=== PATIENT | female | born 1985 | race Caucasian/White ===

== ENCOUNTER 2016-08-10 22:05 | Emergency (ER) | payer BC ==
--- NOTE | 2016-08-10 23:25 | ED ---
Lower Extremity - HPI Summary HPI Summary: 30 female presents with complaints of left ankle pain after she rolled it while walking on uneven gravel just [employer]. Patient states she has sprained the same ankle multiple times in the past, just about once a year. Patient admits to loss of ROM and some tingling. Denies any other injuries or hitting her head. Has not taken any medication prior to arrival. Able to bear weight however it does cause her pain. She has been using crutches. Admits to hearing cracking during incident. Describes pain as an ache/throb. Also admits to nausea because of the pain. - History of Current Complaint Chief Complaint: EDExtremityLower Stated Complaint: LT ANKLE INJURY Time Seen by Provider: 08/10/16 22:40 Hx Obtained From: Patient Hx Last Menstrual Period: 10/17 Mechanism Of Injury: Twisted Onset of Pain: Immediate, Post Accident Onset/Duration: Hours Severity Initially: Moderate Severity Currently: Moderate Pain Intensity: 7 Pain Scale Used: 0-10 Numeric Timing: Constant Location: Is Discrete @ - left ankle/foot Character Of Pain: Sharp, Aching, Stiffness Associated Signs And Symptoms: Positive: Swelling Aggravating Factor(s): Standing, Ambulation, Weight Bearing Alleviating Factor(s): Rest Able to Bear Weight: Yes - however causes pain and refrains - Allergies/Home Medications Allergies/Adverse Reactions: Allergies Allergy/AdvReac Type Severity Reaction Status Date / Time No Known Allergies Allergy Verified 08/10/16 22:07 PMH/Surg Hx/FS Hx/Imm Hx Endocrine/Hematology History: Denies: Hx Anticoagulant Therapy Cardiovascular History: Denies: Hx Pacemaker/ICD Respiratory History: Reports: Hx Asthma - well controlled, Hx Seasonal Allergies Sensory History: Denies: Hx Hearing Aid Neurological History: Denies: Other Neuro Impairments/Disorders Psychiatric History: Denies: Hx Panic Disorder - Surgical History Surgery Procedure, Year, and Place: LT KNEE ACL REPAIRED, [facility] 09, LEFT MIDDLE FINGER MASS REMOVED - Immunization History Immunizations Up to Date: Yes Infectious Disease History: No Infectious Disease History: Denies: Traveled Outside the [place] in Last 30 Days - Family History Known Family History: Positive: None - Social History Alcohol Use: None Substance Use Type: Reports: None Smoking Status (MU): Never Smoked Tobacco Review of Systems Constitutional: Negative Cardiovascular: Negative Respiratory: Negative Positive: Nausea Positive: Arthralgia, Myalgia, Decreased ROM, Edema - left ankle Skin: Negative Positive: Paresthesia - left foot/toes intermittent All Other Systems Reviewed And Are Negative: Yes Physical Exam Triage Information Reviewed: Yes Vital Signs On Initial Exam: Initial Vitals Temp Pulse Resp BP Pulse Ox 98.1 F 77 18 144/91 99 08/10/16 22:07 08/10/16 22:07 08/10/16 22:07 08/10/16 22:07 08/10/16 22:07 Vital Signs Reviewed: Yes Appearance: Positive: Well-Appearing, Well-Nourished, Pain Distress - moderate Skin: Positive: Warm, Skin Color Reflects Adequate Perfusion, Dry, Other - minimal edema noted around left lateral malleolous. no laceration, no obvious deformity, crepitus or step off noted.. Negative: Cold, Numb, Cyanosis @, Erythema @ Head/Face: Positive: Normal Head/Face Inspection Eyes: Positive: Normal ENT: Positive: Normal ENT inspection, Hearing grossly normal Neck: Positive: Supple, Nontender Respiratory/Lung Sounds: Positive: Clear to Auscultation, Breath Sounds Present. Negative: Rales, Rhonchi, Wheezes Cardiovascular: Positive: Normal, RRR, Pulses are Symmetrical in both Upper and Lower Extremities - 2+ pedal b/l. Negative: Murmur, Rub Abdomen Description: Positive: Nontender, Soft Bowel Sounds: Positive: Present Musculoskeletal: Positive: Limited @ - left ankle due to pain with all movements , Pain @ - posterior ankle and lateral/medial ankle with dorsal foot pain radiation, Edema Left - minimal when compared to right, around area of lateral malleolus. Negative: Interruption @ Neurological: Positive: Normal, Sensory/Motor Intact - sensation intact, two point discrimination normal, Alert, Oriented to Person Place, Time, CN Intact II -III, Reflexes Intact, NV Bundle Intact Distally, Unable to Assess Gait - due to pain and non weight bearing Psychiatric: Positive: Normal, Affect/Mood Appropriate AVPU Assessment: Alert Diagnostics - Vital Signs Vital Signs Temp Pulse Resp BP Pulse Ox 08/10/16 22:07 98.1 F 77 18 144/91 99 - Laboratory Lab Statement: Any lab studies that have been ordered have been reviewed, and results considered in the medical decision making process. - Radiology left ankle Xray Interpretation: No Acute Changes Radiology Interpretation Completed By: ED Physician - Dr Trinh and myself Lower Extremity Course/Dx - Course Course Of Treatment: x-ray obtained and negative for fracture. given toradol and zofran for pain and nausea. patient requested CAM boot for easier mobility. given boot, already owned crutches that fit properly. RICE. NSAIDs and follow up. Non weight bearing. Aware of worsening signs and symptoms to watch out for. - Diagnoses Differential Diagnosis/HQI/PQRI: Positive: Contusion, Dislocation, Fracture ( Closed), Sprain, Strain Provider Diagnoses: Left ankle sprain Discharge - Discharge Plan Condition: Stable Disposition: HOME Patient Education Materials: Ankle Sprain (ED) Referrals: Gerhard Pineda MD [Primary Care Provider] - Errol Collins MD [Medical Doctor] - Additional Instructions: Take Aleve or Advil as needed every 6-8 hours with food for pain and inflammation. Apply ice multiple times daily. Rest and elevate. Try to not bear your weight for the next 3 days, use brace or cam boot, crutches. Follow up with PCP or ortho to ensure proper healing. If symptoms worsen or new symptoms develop please seek medical attention promptly.
[2016-08-10] MEDS ORDERED: Ketorolac INJ* 60 MG/2 ML VIAL IM ONE (23:39)
[2016-08-10] MEDS ORDERED: Ondansetron ODT TAB* 4 MG SL PRN (23:39)
[2016-08-11] MEDS ORDERED: Ondansetron ODT TAB* 4 MG PO ONE (00:03)
[2016-08-11 00:09] VITALS: BP 126/73
--- NOTE | 2016-08-11 07:28 | RAD ---
INDICATION: Left ankle injury. TECHNIQUE: 3 views of the left ankle were obtained. FINDINGS: Soft tissue swelling is noted along the anterolateral aspect of the ankle. No fracture is seen. Joint spaces appear maintained. IMPRESSION: SOFT TISSUE SWELLING, NO FRACTURE IS SEEN.
== END 2016-08-11 00:10 | disposition home or self-care (01) ==
LOC: ED 22:05
DX: S93.402A Sprain of unspecified ligament of left ankle, initial encounter (principal); M25.50 Pain in unspecified joint; R20.9 Unspecified disturbances of skin sensation; X50.9XXA Other and unspecified overexertion or strenuous movements or postures, initial encounter; Y93.9 Activity, unspecified; Y92.9 Unspecified place or not applicable; Y99.9 Unspecified external cause status
CPT/HCPCS: 96372; 99282; A9270-GY; J1885

== ENCOUNTER 2017-01-03 10:51 | Emergency (ER) | payer BC ==
[2017-01-03 11:11] VITALS: BP 116/69
--- NOTE | 2017-01-03 11:55 | UC ---
Back Pain HPI - HPI Summary HPI Summary: Pt presents with LBP. She tells me that about 5 years ago she hurt her back at work and underwent a workup including an MRI, which revealed she had herniated disks and bulging disks in her lumbar spine. At that time, she was treated with physical therapy, muscle relaxers, and rest. Today she tells me that she woke up yesterday with lower back pain with pain, numbness, and tingling radiating down both LEs. She denies specific injury. She has never had numbness or tingling in her legs before. She has been taking ibuprofen with little relief. She also complains that her hands felt "crampy" last night, but that went away within minutes. She denies fever, chills, recent illness/injury, abdominal pain, N/V/D/C, loss of bowel or bladder control, dysuria, hematuria, or urinary freq. - History of Current Complaint Chief Complaint: UCBackPain Stated Complaint: BACK PAIN Time Seen by Provider: 01/03/17 11:55 Hx Obtained From: Patient Hx Last Menstrual Period: 11/27/2016 ?: No Onset/Duration: Sudden Onset Timing: Constant Severity Initially: Severe Severity Currently: Severe Pain Intensity: 9 Pain Scale Used: 0-10 Numeric Character: Sharp, Aching Aggravating Factor(s): Movement, Lifting, Bending, Walking Alleviating Factor(s): Rest, Heat Associated Signs And Symptoms: Positive: Weakness, Numbness, Tingling - Allergies/Home Medications Allergies/Adverse Reactions: Allergies Allergy/AdvReac Type Severity Reaction Status Date / Time SEASONAL Allergy Runny Nose Uncoded 10/20/16 14:10 Home Medications: Home Medications Fluticasone DISKUS 100 MCG(NF) [Flovent Diskus 100 MCG(NF)] 1 puff INH BID 01/03 [History Confirmed 01/03/17] PMH/Surg Hx/FS Hx/Imm Hx Previously Healthy: Yes Other History Of: Negative For: Anticoagulant Therapy - Surgical History Surgical History: Yes Surgery Procedure, Year, and Place: LT KNEE ACL REPAIRED; [facility] ; LEFT MIDDLE FINGER MASS REMOVED; - Family History Known Family History: Positive: None - Social History Occupation: Employed Full-time Lives: Alone Alcohol Use: Rare Substance Use Type: None Smoking Status (MU): Never Smoked Tobacco - Immunization History Most Recent Influenza Vaccination: 01/24 Most Recent Tetanus Shot: received in Most Recent Pneumonia Vaccination: never had Review of Systems Constitutional: Negative Skin: Negative Respiratory: Negative Cardiovascular: Negative Gastrointestinal: Negative Genitourinary: Negative Musculoskeletal: Decreased ROM - Spine, Other: - Low back pain Neurological: Numbness - LEs All Other Systems Reviewed And Are Negative: Yes Physical Exam Triage Information Reviewed: Yes Appearance: Pain Distress, Obese Vital Signs: Initial Vital Signs Temp 98.3 F 01/03/17 11:05 Pulse 72 01/03/17 11:05 Resp 18 01/03/17 11:05 BP 116/69 01/03/17 11:05 Pulse Ox 99 01/03/17 11:05 Vital Signs Reviewed: Yes Neck: Positive: Supple, Nontender, No Lymphadenopathy, Other: - FROM. NTTP. Negative spurlings. Respiratory: Positive: Chest non-tender, Lungs clear, Normal breath sounds, No respiratory distress, No accessory muscle use Cardiovascular: Positive: RRR, No Murmur, Pulses Normal Musculoskeletal: Positive: Strength Intact, No Edema, ROM Limited @ - Spine flexion and extension., Other: - Positive SLR on right side. Postivie LESLY pain in low back. FROM and 5/5 strength to B/L LEs and UEs. Strength intact with dorsiflexion and plantar flexion. Neurological: Positive: Alert, Muscle Tone Normal, Other: - Sensations L2-S1 intact. Reflexes: biceps, triceps, brachioradialis, patellar, and ankle +2 Psychological: Positive: Age Appropriate Behavior Skin: Negative: rashes, significant lesion(s) Back Pain Course/Dx - Course Course Of Treatment: Low back pain without recent injury. She does have known herniated discs in her lumbar spine - I advised that she follow up with her PCP for potential updated MRI or further investigation...i.e. neurosurgery, PT, orthopedics. Toradol given today. Ketorolac po for the next 4 days. F/u next week with PCP - Differential Dx/Diagnosis Provider Diagnoses: Low back pain with radiculopathy Discharge - Discharge Plan Condition: Stable Disposition: HOME Prescriptions: Ketorolac TAB * [Toradol TAB *] 10 mg PO Q6H PRN #24 tab PRN Reason: Pain Patient Education Materials: Low Back Strain (ED), Lower Back Exercises (ED) Referrals: Gerhard Pineda MD [Primary Care Provider] - Additional Instructions: Rest and heat your back. If symptoms persist or worsen - please follow up with your PCP, Occupational medicine, or go to the ED. If you develop a fever, SOB, chest pain, urinary or bowel incontinence, new or worsening symptoms - please call your PCP or go to the ED.
[2017-01-03] MEDS ORDERED: Ketorolac INJ* 60 MG/2 ML VIAL IM ONE (12:48)
== END 2017-01-03 13:05 | disposition home or self-care (01) ==
LOC: UCEAST 10:51
DX: M54.5 Low back pain (principal); M54.10 Radiculopathy, site unspecified; Z32.02 Encounter for pregnancy test, result negative
CPT/HCPCS: 81003; 84702; 87086; 96372; 99212; G0463; J1885

== ENCOUNTER 2017-05-23 09:15 | Day surgery (SDC) | payer BC ==
[~2017-05-23 09:15] MED LIST: Buffered Lidocaine 0.9% SYRIN* 5 ML/SYR SYRINGE INTRADERM ONE; Dexamethasone IV* 4 MG/ML 1 ML (4 MG) IV SLOW PU ONE; Famotidine TAB* 20 MG PO ONE
[2017-05-23] MEDS ORDERED: Famotidine TAB* 20 MG ONE (09:26)
[2017-05-23] MEDS ORDERED: Buffered Lidocaine 0.9% SYRIN* 5 ML/SYR SYRINGE ONE (09:26)
[2017-05-23] MEDS ORDERED: Dexamethasone IV* 4 MG/ML 1 ML (4 MG) ONE (09:26)
[2017-05-23 09:58] LABS: ABS Basophils 0 10^3/ul (0-0.2); ABS Eosinophils 0 10^3/ul (0-0.6); ABS Lymphocytes 1.7 10^3/ul (1.0-4.8); ABS Monocytes 0.4 10^3/ul (0-0.8); ABS Neutrophils 4.1 10^3/ul (1.5-7.7); ABS Nucleated RBC 0 10^3/ul; Eosinophil % 0.5 % (0-6); Hematocrit 37 % (35-47); Lymphocyte % 26.8 % (25-47); Mean Corpuscular HGB Conc 36 g/dl (31-36); Mean Corpuscular Hemoglobin 30 pg (27-31); Mean Corpuscular Volume 85 fL (80-97); Mean Platelet Volume 7.8 um3 (7.4-10.4); Nucleated Red Blood Cells % 0; Platelet Count 204 10^3/ul (150-450); Red Blood Count 4.29 10^6/ul (4.0-5.4); Red Cell Distribution Width 13 % (10.5-15); White Blood Count 6.2 10^3/ul (3.5-10.8)
[2017-05-23] MEDS ORDERED: DOXYcycline IV* 100 MG in NS 0.9% 250 ML* 250 ML IVPB ONE (10:00)
[2017-05-23] MEDS ORDERED: Midazolam* 1 MG/ML 5 ML VIAL (5 MG) ONE (10:18)
[2017-05-23] MEDS ORDERED: fentaNYL* 50 MCG/ML 2 ML VIAL (100 MCG VIAL) ONE ×2 (10:18→11:15)
[2017-05-23] MEDS ORDERED: Lidocaine 2% PF * 5 ML VIAL ONE (10:25)
[2017-05-23] MEDS ORDERED: Propofol* 500 MG/50 ML BTL ONE (10:25)
[2017-05-23] MEDS ORDERED: Propofol* 10 MG/ML 20 ML BTL IV PUSH ONE (10:25)
[2017-05-23] MEDS ORDERED: Ondansetron INJ* 2 MG/ML VIAL ONE (10:42)
[2017-05-23] MEDS ORDERED: Silver Nitrate/Potassium Nitr* 1 EA STICK ONE (10:52)
[2017-05-23] MEDS ORDERED: fentaNYL* 50 MCG/ML 2 ML VIAL (100 MCG VIAL) IV PRN (11:11)
[2017-05-23] MEDS ORDERED: HYDROcodone/ACETAMIN 5-325 MG* 1 TAB PO PRN (11:11)
[2017-05-23] MEDS ORDERED: Ketorolac INJ* 30 MG/ML 1 ML VIAL IV PRN (11:11)
[2017-05-23] MEDS ORDERED: DiMENhydriNATE IV* 50 MG/ML VIAL IV PUSH PRN (11:11)
[2017-05-23] MEDS ORDERED: Naloxone* 0.4 MG/ML 1 ML VIAL IV PRN (11:11)
[2017-05-23] MEDS ORDERED: Ketorolac INJ* 30 MG/ML 1 ML VIAL ONE (11:15)
[2017-05-23] MEDS ORDERED: Levalbuterol 0.63MG/3ML NEB* UNIT OF USE INH ONE ×2 (11:36→11:38)
[2017-05-23] MEDS ORDERED: HYDROcodone/ACETAMIN 5-325 MG* 1 TAB ONE (11:53)
[2017-05-23 12:08] VITALS: BP 124/61
--- NOTE | 2017-05-23 12:11 | OP ---
DATE OF OPERATION: 05/23/17 - [facility] DATE OF : 81 SURGEON: Amena Pacheco MD PRE-OP DIAGNOSIS: Missed in 6 weeks, declines medical management. POST-OP DIAGNOSIS: Missed . OPERATIVE PROCEDURE: Suction D and C. ANESTHESIA: General endotracheal. ESTIMATED BLOOD LOSS: Minimal. SPECIMEN: Products of conception. FLUIDS: Crystalloid. DRAINS: 50 cc of clear urine via straight cath. FINDINGS: Small uterus, products of conception. DESCRIPTION OF PROCEDURE: After informed consent was signed, the patient was taken to the operating room where she was given general anesthesia that was found to be adequate. She was prepped and draped in the dorsal lithotomy position with the alex cane stirrups. Two speculums were placed into her vagina to expose the cervix and the anterior lip of the cervix was grasped with a single-tooth tenaculum. The uterus was gently sounded to 12 cm. The size 7 curved suction cannula was then attached to the machine and the cervix was dilated until it could be inserted through the cervix. The suction machine was turned on and the uterine contents were suctioned with gentle curettage with a suction cannula. When the bleeding decreased significantly, a gentle sharp curettage was done followed by one more suction curettage. There was very minimal bleeding at that time and the uterus had contracted down. The tenaculum was then removed and good hemostasis was found with silver nitrate. The speculum was removed from the vagina. The patient was placed back in the supine position, awakened from anesthesia, and moved to the recovery room in stable condition. [id number]/CPS #: [id number] MTDD
== END 2017-05-23 12:53 | disposition home or self-care (01) ==
LOC: OR 09:15
PROVIDERS: ATTEND Obstetrics & Gynecology
DX: O02.1 Missed abortion (principal); J45.909 Unspecified asthma, uncomplicated; M54.2 Cervicalgia; M54.9 Dorsalgia, unspecified
CPT/HCPCS: 36415; 85025; 86850; 86900; 86901; 88305; A9270-GY; J1100; J1885; J2250; J2405; J2704; J3010

== ENCOUNTER 2017-05-25 15:00 | Emergency (ER) | payer BC ==
[2017-05-25 16:15] LABS: ABS Basophils 0 10^3/ul (0-0.2); ABS Eosinophils 0.1 10^3/ul (0-0.6); ABS Monocytes 0.4 10^3/ul (0-0.8); ABS Neutrophils 5.3 10^3/ul (1.5-7.7); ABS Nucleated RBC 0 10^3/ul; Eosinophil % 0.9 % (0-6); Hematocrit 37 % (35-47); Lymphocyte % 25.5 % (25-47); Mean Corpuscular HGB Conc 35 g/dl (31-36); Mean Corpuscular Hemoglobin 30 pg (27-31); Mean Corpuscular Volume 87 fL (80-97); Mean Platelet Volume 7.8 um3 (7.4-10.4); Nucleated Red Blood Cells % 0; Platelet Count 215 10^3/ul (150-450); Red Cell Distribution Width 13 % (10.5-15); White Blood Count 7.8 10^3/ul (3.5-10.8)
[2017-05-25 16:37] LABS: EGFR Non-African American 99.6 (>60)
[2017-05-25] MEDS ORDERED: HYDROcodone/ACETAMIN 5-325 MG* 1 TAB PO ONE (18:43)
--- NOTE | 2017-05-25 18:52 | ED ---
Abdominal Pain/Female - HPI Summary HPI Summary: Pt. is a 31 y.o female who presents to the ER for worsening pelvic pain s/p D & C performed by Dr. Pacheco 3 days ago. Pt. states pelvic cramping has progressively been getting worse. She has been taking motrin with no relief of pain. She called her OB today to ask for stronger pain medication and was instructed to go to the ER if her pain was that bad. She states she is still having some mild spotting. Otherwise denies vaginal discharge. Denies fever, chills, N/V. Past medical history of asthma and allergies. A1. Symptoms are moderate in severity. Pain is intermittent without aggravating factors. - History of Current Complaint Chief Complaint: EDPedro Stated Complaint: POST OP COMPLICATIONS-DR SENT Time Seen by Provider: 05/25/17 18:14 Hx Obtained From: Patient Hx Last Menstrual Period: 11/27/2016 ?: No Onset/Duration: Gradual Onset Timing: Minutes Severity Initially: Moderate Severity Currently: Moderate Pain Intensity: 6 Character: Cramping Aggravating Factor(s): Nothing Alleviating Factor(s): Nothing Associated Signs and Symptoms: Positive: Vaginal Bleeding - Mild spotting, Diarrhea. Negative: Fever, Back Pain, Constipation, Vaginal Discharge, Nausea, Vomiting Allergies/Adverse Reactions: Allergies Allergy/AdvReac Type Severity Reaction Status Date / Time SEASONAL Allergy Runny Nose Uncoded 05/25/17 15:12 PMH/Surg Hx/FS Hx/Imm Hx Previously Healthy: Yes Endocrine/Hematology History: Denies: Hx Anticoagulant Therapy, Hx Diabetes Cardiovascular History: Denies: Hx Hypertension, Hx Pacemaker/ICD, Other Cardiovascular Problems/ Disorders Respiratory History: Reports: Hx Asthma - well controlled, Hx Seasonal Allergies Denies: Other Respiratory Problems/Disorders GI History: Reports: Other GI Disorders - h pylori as a teen History: Denies: Hx Renal Disease Sensory History: Reports: Hx Contacts or Glasses - contacts and glasses Denies: Hx Hearing Aid Opthamlomology History: Reports: Hx Contacts or Glasses - contacts and glasses Neurological History: Reports: Hx Migraine - as a teen, Hx Seizures - x1 as a teen, med related? Denies: Other Neuro Impairments/Disorders Psychiatric History: Denies: Hx Panic Disorder - Surgical History Surgery Procedure, Year, and Place: LT KNEE ACL REPAIRED;, 1998, [facility]. [facility] 09;[facility]. LEFT MIDDLE FINGER MASS REMOVED;, [facility] Hx Anesthesia Reactions: Yes - slow to wake up Infectious Disease History: No Infectious Disease History: Denies: Traveled Outside the [place] in Last 30 Days - Family History Known Family History: Positive: None - Social History Occupation: Employed Full-time Lives: With Family Alcohol Use: Rare Alcohol Amount: 2 per year Substance Use Type: Reports: None Smoking Status (MU): Never Smoked Tobacco Review of Systems Constitutional: Negative Negative: Fever, Chills Cardiovascular: Negative Respiratory: Negative Positive: Abdominal Pain, Diarrhea. Negative: Vomiting, Nausea Positive: discharge - Scant vaginal spotting. No purulent discharge. . Negative : burning, dysuria Psychological: Normal All Other Systems Reviewed And Are Negative: Yes Physical Exam Triage Information Reviewed: Yes Vital Signs On Initial Exam: Initial Vitals Temp Pulse Resp BP Pulse Ox 97.3 F 69 14 129/81 99 05/25/17 15:13 05/25/17 15:13 05/25/17 15:13 05/25/17 15:13 05/25/17 15:13 Vital Signs Reviewed: Yes Appearance: Positive: Well-Appearing - Pt. sitting up in bed in NAD. Grandmother present. Skin: Positive: Warm, Dry Head/Face: Positive: Normal Head/Face Inspection Eyes: Positive: Normal, SIRI Respiratory/Lung Sounds: Positive: Clear to Auscultation, Breath Sounds Present Cardiovascular: Positive: Normal, RRR Abdomen Description: Positive: Other: - Obese. Abd. is soft throughout with mild tenderness to the lower quaudrants. No rebound tenderness or guarding. Pelvic Exam: Positive: Other - Pelvic exam performed with female tech in room. External genitalia is unremarkable. Speculum reveals a scant amount of dark blood from cervix. No purulent discharge. Neurological: Positive: Normal, CN Intact II-III Psychiatric: Positive: Normal Diagnostics - Vital Signs Vital Signs Temp Pulse Resp BP Pulse Ox 05/25/17 15:13 97.3 F 69 14 129/81 99 - Laboratory Lab Results: Lab Results 05/25/17 05/25/17 05/25/17 Range/Units 16:05 16:05 16:05 WBC 7.8 (3.5-10.8) 10^3/ul RBC 4.30 (4.0-5.4) 10^6/ul Hgb 13.0 (12.0-16.0) g/dl Hct 37 (35-47) % MCV 87 (80-97) fL MCH 30 (27-31) pg MCHC 35 (31-36) g/dl RDW 13 (10.5-15) % Plt Count 215 (150-450) 10^3/ul MPV 7.8 (7.4-10.4) um3 Neut % (Auto) 67.9 (38-83) % Lymph % (Auto) 25.5 (25-47) % [place] % (Auto) 5.2 (0-7) % Eos % (Auto) 0.9 (0-6) % Baso % (Auto) 0.5 (0-2) % Absolute Neuts (auto) 5.3 (1.5-7.7) 10^3/ul Absolute Lymphs (auto) 2.0 (1.0-4.8) 10^3/ul Absolute Monos (auto) 0.4 (0-0.8) 10^3/ul Absolute Eos (auto) 0.1 (0-0.6) 10^3/ul Absolute Basos (auto) 0 (0-0.2) 10^3/ul Absolute Nucleated RBC 0 10^3/ul Nucleated RBC % 0 Sodium 140 (139-145) mmol/L Potassium 3.8 (3.5-5.0) mmol/L Chloride 107 (101-111) mmol/L Carbon Dioxide 27 (22-32) mmol/L Anion Gap 6 (2-11) mmol/L BUN 11 (6-24) mg/dL Creatinine 0.68 (0.51-0.95) mg/dL Est GFR ( Amer) 128.2 (>60) Est GFR (Non-Af Amer) 99.6 (>60) BUN/Creatinine Ratio 16.2 (8-20) Glucose 96 (70-100) mg/dL Lactic Acid 0.8 (0.5-2.0) mmol/L Calcium 8.6 (8.6-10.3) mg/dL Total Bilirubin 0.20 (0.2-1.0) mg/dL AST 15 (13-39) U/L ALT 23 (7-52) U/L Alkaline Phosphatase 61 (34-104) U/L C-React Prot High Sens 2.92 mg/L Total Protein 6.2 L (6.4-8.9) g/dL Albumin 3.7 (3.2-5.2) g/dL Globulin 2.5 (2-4) g/dL Albumin/Globulin Ratio 1.5 (1-3) Beta HCG, Quant 2700.00 mIU/mL Result Diagrams: 05/25/17 16:05 05/25/17 16:05 Lab Statement: Any lab studies that have been ordered have been reviewed, and results considered in the medical decision making process. Abdominal Pain Fem Course/Dx - Course Course Of Treatment: Patient presenting with lower abdominal cramping status post D&C 3 days ago. Patient is afebrile with stable vital signs. Blood work obtained in triage is unremarkable including normal WBC and CRP level. She has a benign abdominal exam without rigidity, guarding or rebound tenderness. I spoke with on-call OB, Dr. Gomes, who recommends vaginal cultures which were obtained. She does not see the need for any imaging tonight. She would recommend starting prophylactically doxycycline. Results were discussed with patient. She is in agreement with this plan. She was given 2 Lortab in the ER for pain. Prescription for doxycycline and naproxen sent to pharmacy. She is to call her OB on Sunday for an appointment. Patient instructed to return to the ER over the weekend for increased pain, fever, vomiting, purulent vaginal discharge. - Diagnoses Differential Diagnosis: Positive: Pelvic Inflammatory Disease Provider Diagnoses: Pelvic pain Discharge - Sign-Out/Discharge Documenting (check all that apply): Discharge - Discharge Plan Condition: Good Disposition: HOME Prescriptions: DOXYcycline CAP(*) [DOXYcycline 100MG CAP(*)] 100 mg PO BID 10 Days #20 cap Naproxen TAB* [Naprosyn 250 mg TAB*] 500 mg PO Q12H PRN 10 Days #40 tab PRN Reason: Pain Patient Education Materials: Dilation and Curettage (DC) Referrals: Gerhard Pineda MD [Primary Care Provider] - Amena Pacheco MD [Medical Doctor] - As Soon As Possible (Call on Sunday for an appointment) Additional Instructions: Call your OB on Sunday for an appointment Take medication as directed Return to ER for increased pain, fever, purulent vaginal discharge, or vomiting - Billing Disposition and Condition Condition: GOOD Disposition: HOME
[2017-05-25 20:15] VITALS: BP 125/72
== END 2017-05-25 20:14 | disposition home or self-care (01) ==
LOC: ED 15:00
DX: R10.2 Pelvic and perineal pain (principal); Z98.890 Other specified postprocedural states
CPT/HCPCS: 36415; 80053; 83605; 84702; 85025; 86141; 87480; 87491; 87510; 87591; 87660; 87661; 99283

== ENCOUNTER 2018-01-04 12:09 | Emergency (ER) | payer BC ==
--- OUTSIDE RECORDS SUMMARY | 2018-01-04 12:14 | XMS REPORT | Continuity of Care Document ---
:1985 External Reference #:[id number] Author Name Errol Jones M.D. Address [address] [place] [address] Care Team Providers Name Role Phone Gerhard Pineda M.D. Primary Care Physician Unavailable Payers Type Date Identification Numbers Payment Provider Subscriber Effective: Policy Number: [id number] / Of HARDEEP Rossi 2014 Group Name: Marlen [address] [address] PayID: [id number] KENNY Smith [id number] Advance Directives Description No Information Available Problems Date Description Provider Status Onset: 06/11/2015 Mild persistent asthma Annette Rodriguez M.D. Active Onset: 06/11/2015 Allergic rhinitis due to animals Annette Rodriguez M.D. Active Onset: 06/11/2015 Allergic rhinitis due to pollen Annette Rodriguez M.D. Active Onset: 05/20/2015 Toxic effect of venom of bees, Errol Jones M.D. Active accidental (unintentional), subsequent encounter Onset: 05/20/2015 Mild intermittent asthma, Errol Jones M.D. Active uncomplicated Onset: 05/20/2015 Allergic rhinitis Errol Jones M.D. Active Onset: 05/20/2015 Body mass index 30+ - obesity Errol Jones M.D. Active Family History Date Family Member(s) Problem(s) Comments General Seasonal Allergies First Son Seasonal Allergies Social History Type Date Description Comments Sex Unknown Marital Status Legal Status: Lives With Spouse Lives With Sons Lives With Daughter Home Environment Does not use air box coverer hand Home Environment Does not have an air conditioner Home Environment There is no basement Home Environment Mattress is over 10 years old Home Environment Pillows are polyester Home Environment There are draperies in the home Home Environment Does not use a dehumidifier Home Environment The home is elise Home Environment The floors are tile Home Environment The floors are wood Home Environment Uses baseboard heating Home Environment [place] Home Environment Water Source: Well Smoke-Free Home is smoke-free Smoke-Free Work is smoke-free Pets 1 cat Pets 1 dog Pets Animals sleep in bedroom 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 Ventolin HFA 08/04/ Active Aerosol 108(90Bas 18gm 2 puffs Annette Estevez 2016 e) inhalation Pieretti, mcg/Act every 4 M.D. hours prn Desloratadine 05/19/ Active Tablets 5mg 30tab Take One J30.89 Errol Dietrich 2015 s Tablet By Karen, Mouth Every M.D. Day Low-Ogestrel / Active Tablets 0.3-30mg- Unknown 0000 mcg Flovent HFA 03/10/ Hx Aerosol 110mcg/Ac 12gm 2 puff J30.1 Kelly 2016 - t inhalation Uldrich, 12/07/ twice a day [employer] 2018 Medications Administered in Office Medication Date Status Form Strength Qnty SIG Indications Ordering Provider Injection 12/08/19 Administered Injection Allergy 18 Injection Injection 11/30/19 Administered Injection Allergy 18 Injection Injection 11/16/19 Administered Injection Allergy 18 Injection Injection 10/26/19 Administered Injection Allergy 18 Injection Injection 10/19/19 Administered Injection Allergy 18 Injection Injection 10/12/19 Administered Injection Errol Dietrich 18 Erica Jones Injection 10/12/19 Administered Injection Allergy 18 Injection Injection 09/28/19 Administered Injection Allergy 18 Injection Injection 09/21/19 Administered Injection Allergy 18 Injection Injection 09/14/19 Administered Injection Allergy 18 Injection Injection 08/31/19 Administered Injection Allergy 18 Injection Injection 08/24/19 Administered Injection Allergy 18 Injection Injection 08/17/19 Administered Injection Allergy 18 Injection Injection 08/10/19 Administered Injection Allergy 18 Injection Injection 08/03/19 Administered Injection Allergy 18 Injection Injection 07/20/19 Administered Injection Allergy 18 Injection Injection 07/14/19 Administered Injection Allergy 18 Injection Injection 07/06/19 Administered Injection Allergy 18 Injection Injection 06/29/19 Administered Injection Allergy 18 Injection Injection 06/22/19 Administered Injection Allergy 18 Injection Injection 06/15/19 Administered Injection Allergy 18 Injection Injection 06/02/19 Administered Injection Allergy 18 Injection Injection 05/25/19 Administered Injection Allergy 18 Injection Injection 05/17/19 Administered Injection Errol Dietrich 18 Erica Jones Injection 05/17/19 Administered Injection Allergy 18 Injection Injection 05/10/19 Administered Injection Allergy 18 Injection Injection 05/04/19 Administered Injection Allergy 18 Injection Injection 04/27/19 Administered Injection Allergy 18 Injection Injection 04/20/19 Administered Injection Allergy 18 Injection Injection 04/13/19 Administered Injection Allergy 18 Injection Injection 04/05/19 Administered Injection Allergy 18 Injection Injection 03/30/19 Administered Injection Allergy 18 Injection Injection 03/22/19 Administered Injection Allergy 18 Injection Injection 03/09/19 Administered Injection Allergy 18 Injection Injection 03/02/19 Administered Injection Allergy 18 Injection Injection 02/22/19 Administered Injection Allergy 18 Injection Injection 02/15/19 Administered Injection Allergy 18 Injection Injection 02/10/20 Administered Injection Allergy 17 Injection Injection 02/02/20 Administered Injection Allergy 17 Injection Injection 01/27/20 Administered Injection Errol Dietrich 17 Erica Jones Injection 01/27/20 Administered Injection Allergy 17 Injection Injection 01/20/20 Administered Injection Allergy 17 Injection Injection 01/13/20 Administered Injection Allergy 17 Injection Injection 01/04/20 Administered Injection Allergy 17 Injection Injection 12/29/19 Administered Injection Allergy 17 Injection Injection 12/22/19 Administered Injection Errol Dietrich 17 Erica Jones Injection 12/22/19 Administered Injection Allergy 17 Injection Injection 12/16/19 Administered Injection Allergy 17 Injection Injection 12/09/19 Administered Injection Allergy 17 Injection Injection 12/02/19 Administered Injection Allergy 17 Injection Injection 11/25/19 Administered Injection Allergy 17 Injection Injection 11/18/19 Administered Injection Allergy 17 Injection Injection 11/11/19 Administered Injection Allergy 17 Injection Injection 11/03/19 Administered Injection Allergy 17 Injection Injection 10/28/19 Administered Injection Errol Jones M.D. Injection 10/28/19 Administered Injection Allergy 17 Injection Injection 10/20/19 Administered Injection Allergy 17 Injection Injection 10/10/19 Administered Injection Allergy 17 Injection Injection 10/05/19 Administered Injection Allergy 17 Injection Injection 09/19/19 Administered Injection Errol Jones M.D. Injection 09/19/19 Administered Injection Allergy 17 Injection Injection 09/14/19 Administered Injection Allergy 17 Injection Injection 09/09/19 Administered Injection Allergy 17 Injection Injection 09/02/19 Administered Injection Allergy 17 Injection Injection 08/26/19 Administered Injection Allergy 17 Injection Injection 08/18/19 Administered Injection Allergy 17 Injection Injection 08/11/19 Administered Injection Allergy 17 Injection Injection 08/05/19 Administered Injection Allergy 17 Injection Injection 07/27/19 Administered Injection Errol Jones M.D. Injection 07/27/19 Administered Injection Allergy 17 Injection Injection 07/20/19 Administered Injection Errol Jones M.D. Injection 07/20/19 Administered Injection Allergy 17 Injection Injection 07/15/19 Administered Injection Allergy 17 Injection Injection 07/08/19 Administered Injection Allergy 17 Injection Injection 07/04/19 Administered Injection Allergy 17 Injection Injection 06/13/19 Administered Injection Allergy 17 Injection Injection 06/06/19 Administered Injection Allergy 17 Injection Injection 05/26/19 Administered Injection Allergy 17 Injection Injection 05/23/19 Administered Injection Allergy 17 Injection Injection 05/16/19 Administered Injection Allergy 17 Injection Injection 05/06/19 Administered Injection Allergy 17 Injection Injection 04/29/19 Administered Injection Allergy 17 Injection Injection 04/22/19 Administered Injection Allergy 17 Injection Injection 04/15/19 Administered Injection Allergy 17 Injection Injection 04/07/19 Administered Injection Allergy 17 Injection Injection 03/31/19 Administered Injection Allergy 17 Injection Injection 03/23/19 Administered Injection Allergy 17 Injection Injection 03/17/19 Administered Injection Allergy 17 Injection Injection 03/10/19 Administered Injection Annette Rodriguez M.D. Injection 03/10/19 Administered Injection Allergy 17 Injection Injection 03/03/19 Administered Injection Allergy 17 Injection Injection 02/23/19 Administered Injection Allergy 17 Injection Injection 02/16/19 Administered Injection Allergy 17 Injection Injection 02/10/20 Administered Injection Allergy 16 Injection Injection 02/02/20 Administered Injection Allergy 16 Injection Injection 01/27/20 Administered Injection Allergy 16 Injection Injection 01/19/20 Administered Injection Allergy 16 Injection Injection 01/12/20 Administered Injection Allergy 16 Injection Injection 01/05/20 Administered Injection Allergy 16 Injection Injection 12/31/19 Administered Injection Allergy 16 Injection Injection 12/24/19 Administered Injection Allergy 16 Injection Injection 12/15/19 Administered Injection Allergy 16 Injection Injection 12/02/19 Administered Injection Allergy 16 Injection Injection 11/26/19 Administered Injection Allergy 16 Injection Injection 11/19/19 Administered Injection Allergy 16 Injection Injection 11/12/19 Administered Injection Allergy 16 Injection Injection 11/05/19 Administered Injection Allergy 16 Injection Injection 10/29/19 Administered Injection Allergy 16 Injection Injection 10/21/19 Administered Injection Allergy 16 Injection Injection 10/11/19 Administered Injection Allergy 16 Injection Injection 10/04/19 Administered Injection Allergy 16 Injection Injection 09/30/19 Administered Injection Allergy 16 Injection Injection 09/22/19 Administered Injection Allergy 16 Injection Injection 09/15/19 Administered Injection Allergy 16 Injection Injection 09/06/19 Administered Injection Allergy 16 Injection Injection 08/30/19 Administered Injection Allergy 16 Injection Injection 08/23/19 Administered Injection Allergy 16 Injection Injection 08/18/19 Administered Injection Allergy 16 Injection Injection 08/09/19 Administered Injection Allergy 16 Injection Injection 08/04/19 Administered Injection Allergy 16 Injection Injection 07/26/19 Administered Injection Allergy 16 Injection Injection 07/19/19 Administered Injection Allergy 16 Injection Injection 07/14/19 Administered Injection Allergy 16 Injection Injection 07/05/19 Administered Injection Allergy 16 Injection Injection 06/28/19 Administered Injection Allergy 16 Injection Immunizations Description No Information Available Vital Signs Date Vital Result Comment 12/07/2017 11:06am Height 65 inches 5'5" Weight 230.00 lb Weight 104.328 kg Respiratory Rate 20 /min Heart Rate 71 /min O2 % BldC Oximetry 98 % BP Systolic 107 mmHg BP Diastolic 60 mmHg Asthma Control Test 25 BMI (Body Mass Index) 38.3 kg/m2 06/01/2017 11:39am Height 65 inches 5'5" Weight 228.00 lb Weight 103.421 kg Respiratory Rate 20 /min Heart Rate 79 /min O2 % BldC Oximetry 98 % BP Systolic 109 mmHg BP Diastolic 64 mmHg Asthma Control Test 23 BMI (Body Mass Index) 37.9 kg/m2 12/01/2016 11:03am Height 65 inches 5'5" Weight 232.00 lb Weight 105.235 kg Respiratory Rate 18 /min Heart Rate 70 /min O2 % BldC Oximetry 98 % BP Systolic 115 mmHg BP Diastolic 73 mmHg Asthma Control Test 24 BMI (Body Mass Index) 38.6 kg/m2 08/04/2016 11:38am Height 65 inches 5'5" Weight 232.00 lb Weight 105.235 kg Respiratory Rate 20 /min Heart Rate 61 /min O2 % BldC Oximetry 97 % BP Systolic 111 mmHg BP Diastolic 68 mmHg Asthma Control Test 23 BMI (Body Mass Index) 38.6 kg/m2 03/10/2016 11:48am Height 65 inches 5'5" Weight 231.00 lb Weight 104.782 kg Respiratory Rate 16 /min Heart Rate 76 /min O2 % BldC Oximetry 98 % BP Systolic 117 mmHg BP Diastolic 77 mmHg Asthma Control Test 24 BMI (Body Mass Index) 38.4 kg/m2 12/15/2015 11:51am Height 65 inches 5'5" Weight 234.00 lb Weight 106.142 kg Respiratory Rate 18 /min Heart Rate 79 /min O2 % BldC Oximetry 98 % BP Systolic 124 mmHg BP Diastolic 69 mmHg Asthma Control Test 19 BMI (Body Mass Index) 38.9 kg/m2 08/06/2015 11:18am Height 65 inches 5'5" Weight 227.00 lb Weight 102.967 kg Respiratory Rate 16 /min Heart Rate 69 /min O2 % BldC Oximetry 98 % BP Systolic 124 mmHg BP Diastolic 76 mmHg Asthma Control Test 24 BMI (Body Mass Index) 37.8 kg/m2 06/11/2015 11:40am Height 65 inches 5'5" Weight 220.00 lb Weight 99.792 kg Respiratory Rate 16 /min Heart Rate 73 /min O2 % BldC Oximetry 98 % BP Systolic 133 mmHg BP Diastolic 80 mmHg Asthma Control Test 19 BMI (Body Mass Index) 36.6 kg/m2 05/20/2015 9:58am Height 65 inches 5'5" Weight 220.00 lb Weight 99.792 kg Respiratory Rate 18 /min Heart Rate 86 /min O2 % BldC Oximetry 98 % BP Systolic 111 mmHg BP Diastolic 69 mmHg Asthma Control Test 24 BMI (Body Mass Index) 36.6 kg/m2 Results Description No Information Available Procedures Date Code Description Status 12/07/2017 94788 Injection Completed 12/07/2017 27791 Pre PFT Completed 11/29/2017 93212 Injection Completed 11/15/2017 18556 Injection Completed 10/25/2017 14898 Injection Completed 10/18/2017 29641 Injection Completed 10/11/2017 20977 Injection Completed 10/11/2017 84623 Injection Completed 10/11/2017 58039 Extract 1-10 Completed 10/11/2017 74570 Extract 1-10 Completed 09/27/2017 79991 Injection Completed 09/20/2017 77915 Injection Completed 09/13/2017 51991 Injection Completed 08/30/2017 58732 Injection Completed 08/23/2017 43688 Injection Completed 08/16/2017 91110 Injection Completed 08/09/2017 35963 Injection Completed 08/02/2017 21103 Injection Completed 07/19/2017 44943 Injection Completed 07/13/2017 89947 Extract 1-10 Completed 07/13/2017 14375 Injection Completed 07/05/2017 42418 Injection Completed 06/28/2017 41913 Injection Completed 06/21/2017 66694 Injection Completed 06/14/2017 67027 Injection Completed 06/01/2017 68438 Injection Completed 06/01/2017 26477 Pre PFT Completed 05/24/2017 53227 Injection Completed 05/16/2017 86448 Injection Completed 05/16/2017 43653 Injection Completed 05/09/2017 42329 Injection Completed 05/03/2017 33006 Injection Completed 04/26/2017 28898 Extract 1-10 Completed 04/26/2017 37351 Injection Completed 04/19/2017 75572 Injection Completed 04/12/2017 22537 Injection Completed 04/05/2017 02880 Injection Completed 03/30/2017 42201 Injection Completed 03/22/2017 83236 Injection Completed 03/09/2017 22258 Injection Completed 03/02/2017 78395 Injection Completed 02/22/2017 58361 Injection Completed 02/15/2017 20805 Injection Completed 02/09/2017 25810 Extract 1-10 Completed 02/09/2017 64075 Extract 1-10 Completed 02/09/2017 84337 Injection Completed 02/01/2017 73054 Injection Completed 01/26/2017 82310 Injection Completed 01/26/2017 73496 Injection Completed 01/19/2017 93604 Injection Completed 01/12/2017 46626 Injection Completed 01/03/2017 37099 Injection Completed 12/28/2016 65427 Injection Completed 12/21/2016 18809 Injection Completed 12/21/2016 23491 Injection Completed 12/15/2016 39397 Injection Completed 12/08/2016 06617 Injection Completed 12/01/2016 96567 Extract 1-10 Completed 12/01/2016 97679 Injection Completed 12/01/2016 60211 Pre PFT Completed 11/24/2016 54344 Injection Completed 11/17/2016 71622 Injection Completed 11/10/2016 97871 Injection Completed 11/02/2016 29617 Injection Completed 10/27/2016 52996 Injection Completed 10/27/2016 03698 Injection Completed 10/19/2016 78596 Injection Completed 10/09/2016 27298 Injection Completed 10/04/2016 57883 Injection Completed 09/18/2016 58060 Injection Completed 09/18/2016 43987 Injection Completed 09/13/2016 57577 Extract 1-10 Completed 09/13/2016 40589 Injection Completed 09/08/2016 24107 Injection Completed 09/01/2016 18337 Injection Completed 08/25/2016 81687 Injection Completed 08/17/2016 62618 Injection Completed 08/10/2016 24042 Injection Completed 08/04/2016 05311 Injection Completed 08/04/2016 61478 Pre PFT Completed 07/26/2016 46285 Injection Completed 07/26/2016 14877 Injection Completed 07/19/2016 66647 Injection Completed 07/19/2016 28242 Injection Completed 07/14/2016 93099 Injection Completed 07/07/2016 11741 Extract 1-10 Completed 07/07/2016 71615 Injection Completed 07/03/2016 55622 Injection Completed 06/12/2016 61741 Injection Completed 06/05/2016 54324 Injection Completed 05/25/2016 82980 Injection Completed 05/22/2016 56322 Injection Completed 05/15/2016 79264 Injection Completed 05/05/2016 26289 Injection Completed 04/28/2016 11274 Injection Completed 04/21/2016 28303 Injection Completed 04/14/2016 85316 Extract 1-10 Completed 04/14/2016 73176 Injection Completed 04/07/2016 92981 Injection Completed 03/31/2016 51355 Injection Completed 03/23/2016 95011 Injection Completed 03/17/2016 56560 Injection Completed 03/10/2016 08976 Injection Completed 03/10/2016 55046 Injection Completed 03/10/2016 40650 Pre PFT Completed 03/03/2016 59636 Injection Completed 02/24/2016 11131 Injection Completed 02/17/2016 81335 Injection Completed 02/10/2016 42275 Injection Completed 02/02/2016 61612 Extract 1-10 Completed 02/02/2016 35433 Injection Completed 01/27/2016 16528 Injection Completed 01/19/2016 44197 Injection Completed 01/12/2016 54996 Injection Completed 01/05/2016 04015 Injection Completed 12/31/2015 04780 Injection Completed 12/24/2015 80929 Injection Completed 12/15/2015 43155 Injection Completed 12/15/2015 99247 Pre PFT Completed 12/02/2015 16445 Injection Completed 11/26/2015 34227 Injection Completed 11/19/2015 47464 Extract 1-10 Completed 11/19/2015 66701 Injection Completed 11/12/2015 57854 Injection Completed 11/05/2015 92277 Injection Completed 10/29/2015 41253 Injection Completed 10/21/2015 03530 Injection Completed 10/11/2015 65399 Injection Completed 10/04/2015 47711 Injection Completed 09/30/2015 91703 Injection Completed 09/22/2015 49891 Injection Completed 09/15/2015 18952 Injection Completed 09/06/2015 23281 Extract 1-10 Completed 09/06/2015 32418 Injection Completed 08/30/2015 74106 Injection Completed 08/23/2015 99043 Injection Completed 08/18/2015 19634 Injection Completed 08/09/2015 25721 Injection Completed 08/06/2015 83581 Pulmonary Function Test Completed 08/04/2015 89200 Injection Completed 07/26/2015 94964 Injection Completed 07/19/2015 79904 Injection Completed 07/14/2015 15698 Injection Completed 07/05/2015 73985 Injection Completed 06/28/2015 05204 Injection Completed 06/16/2015 28247 Extract 1-10 Completed 05/20/2015 77281 Skin Test Scratch # Of Units ____ Completed 05/20/2015 80090 Pre PFT Completed Encounters Type Date Location Provider Dx Diagnosis Office Visit 12/07/2017 Larry Villalpando30.1 Allergic rhinitis due 11:00a [employer] to pollen J30.2 Other seasonal allergic rhinitis J30.81 Allergic rhinitis due to animal (cat) (dog) hair and dander J30.89 Other allergic rhinitis J45.30 Mild persistent asthma, uncomplicated Office Visit 06/01/2017 11:20a Garrett Treviño, J45.30 Mild persistent [facility] asthma, uncomplicated J30.1 Allergic rhinitis due to pollen J30.2 Other seasonal allergic rhinitis J30.81 Allergic rhinitis due to animal (cat) (dog) hair and dander J30.89 Other allergic rhinitis Office Visit 12/01/2016 11:00a Larry Molina30.89 Other allergic M.D. rhinitis J30.81 Allergic rhinitis due to animal (cat) (dog) hair and dander J30.2 Other seasonal allergic rhinitis J30.1 Allergic rhinitis due to pollen J45.30 Mild persistent asthma, uncomplicated Z23 Encounter for immunization Office Visit 08/04/2016 11:20a Larry Molina30.1 Allergic rhinitis M.D. due to pollen J30.2 Other seasonal allergic rhinitis J30.81 Allergic rhinitis due to animal (cat) (dog) hair and dander J30.89 Other allergic rhinitis J45.30 Mild persistent asthma, uncomplicated T63.441D Toxic effect of venom of bees, accidental, subs Z68.38 Body mass index (BMI) 38.0-38.9, adult Office Visit 03/10/2016 11:40a Larry Molina30.1 Allergic rhinitis M.D. due to pollen J30.2 Other seasonal allergic rhinitis J30.1 Allergic rhinitis due to pollen J30.81 Allergic rhinitis due to animal (cat) (dog) hair and dander J30.89 Other allergic rhinitis J30.89 Other allergic rhinitis J30.81 Allergic rhinitis due to animal (cat) (dog) hair and dander J30.2 Other seasonal allergic rhinitis J45.30 Mild persistent asthma, uncomplicated Z23 Encounter for immunization Z68.38 Body mass index (BMI) 38.0-38.9, adult Office Visit 12/15/2015 11:40a Larry Molina30.81 Allergic rhinitis M.D. due to animal (cat) (dog) hair and dander J30.2 Other seasonal allergic rhinitis J30.1 Allergic rhinitis due to pollen J30.89 Other allergic rhinitis J45.30 Mild persistent asthma, uncomplicated Office Visit 08/06/2015 11:20a Adolphusnaeem Rodriguez J30.1 Allergic rhinitis M.D. due to pollen J30.2 Other seasonal allergic rhinitis J30.81 Allergic rhinitis due to animal (cat) (dog) hair and dander J30.89 Other allergic rhinitis J45.30 Mild persistent asthma, uncomplicated Z23 Encounter for immunization Z68.37 Body mass index (BMI) 37.0-37.9, adult Office Visit 06/11/2015 11:40a Adolphus Annette Rodriguez J30.1 Allergic rhinitis M.D. due to pollen Z68.36 Body mass index (BMI) 36.0-36.9, adult J30.89 Other allergic rhinitis J30.81 Allergic rhinitis due to animal (cat) (dog) hair and dander J30.2 Other seasonal allergic rhinitis J45.30 Mild persistent asthma, uncomplicated T63.441D Toxic effect of venom of bees, accidental, subs Z23 Encounter for immunization Office Visit 05/20/2015 10:00a Adolphus Errol Jones J30.89 Other allergic M.D. rhinitis J45.20 Mild intermittent asthma, uncomplicated T63.441D Toxic effect of venom of bees, accidental, subs Z68.36 Body mass index (BMI) 36.0-36.9, adult Plan of Treatment Future Appointment(s):06/07/2018 11:20 am - AUTUMN Cronin at [facility] 4:00 pm - Allergy Injection at [facility]12/20/2017 4:00 pm - Allergy Injection at [facility]12/07/2017 - JADIEL Cronin-CJ30.1 Allergic rhinitis due to ktsjcoE89.2 Other seasonal allergic wiiirydrK53.81 Allergic rhinitis due to animal (cat) (dog) hair and tqaoxvT50.89 Other allergic dmbgmrgoI28.30 Mild persistent asthma, uncomplicatedFollow up:6 months with pre PFTRecommendations: Continue all medications as prescribed.Refrain from wearing perfumes/scented colognes while visitingour office. Continue the Pulmicort 2 puffs twice a day Change the antihistamine to Zyrtec for possible Continue Ventolin 2 puffs every 4 hours for cough, shortness of breath, chest congestion, or wheezing.Monitor Albuterol use. If using more than 2x/week, please call the office as your asthma medications may need to be adjusted. PFT done today. Pulmonary Function Studies are done by exhaling (blowing) into a machine to detect an asthmatic condition or other lung problem. Results reviewed and are normal
[2018-01-04 12:21] VITALS: BP 120/51
--- NOTE | 2018-01-04 12:51 | UC ---
Respiratory Complaint HPI - HPI Summary HPI Summary: 32-year-old woman who is 27 weeks comes in to clinic today with a chief complaint of cough chest congestion shortness breath for 2 weeks. She does have a history of asthma and she's been using an her rescue inhaler on a regular basis. She also is on an inhaled corticosteroid Flovent. She's been bringing up sputum. Overall she is feeling worse especially with the chest congestion. - History of Current Complaint Chief Complaint: UCRespiratory Stated Complaint: CONGESTED Time Seen by Provider: 01/04/18 12:30 Hx Last Menstrual Period: 11/27/2016 Pain Intensity: 0 - Allergies/Home Medications Allergies/Adverse Reactions: Allergies Allergy/AdvReac Type Severity Reaction Status Date / Time SEASONAL Allergy Runny Nose Uncoded 01/04/18 12:21 Home Medications: Home Medications Pnv No.95/Ferrous Fum/Folic AC [ Vitamin & Minera 28-0.8 mg] 1 tab PO [History] guaiFENesin [Mucinex] 600 mg PO 01/04/18 [History] PMH/Surg Hx/FS Hx/Imm Hx Respiratory History: Asthma Other History Of: Negative For: Anticoagulant Therapy - Surgical History Surgical History: Yes Surgery Procedure, Year, and Place: LT KNEE ACL REPAIRED;, 1998, [facility] [place]. GALL[place]DER 09;[facility] [place]. LEFT MIDDLE FINGER MASS REMOVED;, [facility] [place] - Family History Known Family History: Positive: None - Social History Alcohol Use: None Alcohol Amount: 2 per year Substance Use Type: None Smoking Status (MU): Never Smoked Tobacco - Immunization History Most Recent Influenza Vaccination: 01/24 Most Recent Tetanus Shot: received in Most Recent Pneumonia Vaccination: never had Review of Systems All Other Systems Reviewed And Are Negative: Yes Constitutional: Positive: Fever Skin: Positive: Negative Eyes: Positive: Negative ENT: Positive: Sore Throat, Nasal Discharge, Sinus Congestion Respiratory: Positive: Shortness Of Breath, Cough, Other - WHEEZING Cardiovascular: Positive: Negative Gastrointestinal: Positive: Negative Motor: Positive: Negative Neurovascular: Positive: Negative Musculoskeletal: Positive: Negative Neurological: Positive: Negative Psychological: Positive: Negative Is Patient Immunocompromised?: No Physical Exam Triage Information Reviewed: Yes Appearance: No Pain Distress, Well-Nourished, Ill-Appearing - MILD Vital Signs: Initial Vital Signs Temp 96.9 F 01/04/18 12:17 Pulse 78 01/04/18 12:17 Resp 18 01/04/18 12:17 BP 120/51 01/04/18 12:17 Pulse Ox 97 01/04/18 12:17 Vital Signs Reviewed: Yes Eye Exam: Normal Eyes: Positive: Conjunctiva Clear ENT: Positive: Pharyngeal erythema, Nasal congestion, Nasal drainage, TMs normal Neck exam: Normal Neck: Positive: Supple Respiratory: Positive: No respiratory distress, No accessory muscle use, Rhonchi Cardiovascular Exam: Normal Cardiovascular: Positive: RRR Abdomen Description: Positive: Other: - GRAVID Musculoskeletal Exam: Normal Musculoskeletal: Positive: Strength Intact, ROM Intact Neurological Exam: Normal Neurological: Positive: Alert, Muscle Tone Normal Psychological Exam: Normal Psychological: Positive: Age Appropriate Behavior Skin Exam: Normal UC Diagnostic Evaluation - Laboratory O2 Sat by Pulse Oximetry: 97 Respiratory Course/Dx - Course Course Of Treatment: Patient is 27 weeks and she has a history of asthma. She's been sick for 2 weeks. Her chest congestion and shortness of breath or getting worse. We will treat with azithromycin. She uses an inhaled corticosteroid already and is using her rescue inhaler. We discussed use of oral steroids and . At this time I am prescribing prednisone 40 mg by mouth once a day to be used if needed. The plan is to start the azithromycin and if she improves her is no need for the steroid however if her breathing gets worse she can start taking the prednisone. We discussed if her condition gets worse she should be evaluated in the emergency department. - Differential Dx/Diagnosis Provider Diagnoses: BRONCHITIS. ASTHMA EXACERBATION Discharge - Sign-Out/Discharge Documenting (check all that apply): Patient Departure All imaging exams completed and their final reports reviewed: No Studies - Discharge Plan Condition: Stable Disposition: HOME Prescriptions: Azithromycin TAB* [Zithromax TAB (Z-JOHN) 250 mg #6 tabs] 2 tab PO .TODAY, THEN 1 DAILY #1 john predniSONE TAB* [Deltasone 20 MG TAB*] 40 mg PO DAILY PRN #10 tab PRN Reason: Wheezing Patient Education Materials: Acute Bronchitis (ED), Asthma (ED) Referrals: Gerhard Pineda MD [Primary Care Provider] - Additional Instructions: FOLLOW UP WITH YOUR DOCTOR. GO TO THE EMERGENCY DEPARTMENT FOR ANY WORSENING OF YOUR CONDITION OR QUESTIONS OR CONCERNS. - Billing Disposition and Condition Condition: STABLE Disposition: Home
== END 2018-01-04 12:58 | disposition home or self-care (01) ==
LOC: UCEAST 12:09
DX: O26.892 Other specified pregnancy related conditions, second trimester (principal); Z3A.27 27 weeks gestation of pregnancy; J45.901 Unspecified asthma with (acute) exacerbation
CPT/HCPCS: 99212; G0463